=== PATIENT | male | born 1940 | race Caucasian/White ===

== ENCOUNTER 2022-06-08 11:44 | Inpatient (IN) | payer BC, MEDICAID ==
[~2022-06-08] VITALS: Ht 167.6 cm; Wt 85.3 kg
--- NOTE | 2022-06-08 11:50 | NUR ---
BIBRA 59 FROM SNF C/O SORETHROAT X 1 DAY. PLACED IN BED, AAOX3, BREATHING UNLABORED SATURATING AT 95%RA.
--- NOTE | 2022-06-08 12:25 | NUR ---
BLOOD DRAWN AND SWAB FOR COVID19 SENT TO LAB
[2022-06-08 12:33] LABS: BASOPHILS % (AUTO) 0.5 % (0.0-2.0); EOSINOPHILS % (AUTO) 1.9 % (0.0-6.0); HEMATOCRIT 45 % (39-51); HEMOGLOBIN 14.3 g/dL (13.5-17.5); LYMPHOCYTES # (AUTO) 1.6 K/uL (0.8-4.8); MEAN CORPUSCULAR HGB CONC 32 g/dl (31.0-36.0); MEAN CORPUSCULAR VOLUME 92 fL (80-96); MONOCYTES # (AUTO) 0.5 K/uL (0.1-1.30); MONOCYTES % (AUTO) 5.4 % (2.0-12.0); NEUTROPHILS # (AUTO) 6.2 K/uL (1.8-8.9); NEUTROPHILS % (AUTO) 73.2 % (43.0-81.0); PLATELET COUNT (AUTO) 287 K/uL (150-450); RED BLOOD CELL COUNT(AUTO) 4.89 MIL/uL (4.5-6.0); WHITE BLOOD COUNT (AUTO) 8.5 K/uL (4.3-11.0)
--- NOTE | 2022-06-08 12:41 | NUR ---
urine sample sent to lab
[2022-06-08 12:47] LABS: CALCIUM, SERUM 8.9 mg/dL (8.5-10.1); CARBON DIOXIDE 33 mmol/L (21-32); CHLORIDE 106 mmol/L (98-107); CREATININE 0.7 mg/dL (0.6-1.3); GLUCOSE 148 mg/dL (74-106); POTASSIUM 3.5 mmol/L (3.5-5.1); SODIUM SERUM 145 mmol/L (136-145); UREA NITROGEN, BLOOD 20 mg/dL (7-18)
[2022-06-08 12:53] LABS: ALANINE AMINOTRANSFERASE 34 U/L (12-78); ALBUMIN 2.9 g/dL (3.4-5.0); ALKALINE PHOSPHATASE 108 U/L (46-116); ASPARTATE AMINOTRANSFERASE 19 U/L (15-37); BILIRUBIN,DIRECT 0.2 mg/dL (0.0-0.2); BILIRUBIN,TOTAL 0.4 mg/dL (0.2-1.0); TOTAL PROTEIN, SERUM 7.4 g/dL (6.4-8.2)
[2022-06-08 13:16] LABS: BILIRUBIN,URINE NEGATIVE (NEGATIVE); COLOR,URINE YELLOW (YELLOW); LEUKOCYTE ESTERASE ,URINE NEGATIVE (NEGATIVE); NITRITE, URINE NEGATIVE (NEGATIVE); PH,URINE 6.5 (5.0-8.0); PROTEIN,URINE NEGATIVE (NEGATIVE); UGLUCOSE NEGATIVE (NEGATIVE)
[2022-06-08 13:28] LABS: BACTERIA,URINE Rare /HPF (None Seen); SQUAMOUS EPITHELIAL CELL,UR Rare /HPF (None Seen); WBC,URINE 0-2 /HPF (0-3)
[2022-06-08] MEDS ORDERED: ONDANSETRON HCL/PF 4 MG/2 ML VIAL IVP PRN (13:30)
[2022-06-08] MEDS ORDERED: ASPIRIN EC 325 MG TABLET.DR PO ONE ×2 (13:30→13:34)
[2022-06-08] MEDS ORDERED: ACETAMINOPHEN 325 MG TABLET PO PRN (13:30)
--- NOTE | 2022-06-08 14:17 | NUR ---
CALLED ADMITTING REGARDING PT INSURANCE AND WAS NOTIFIED THAT WE ARE AWAITING A CALL BACK FROM LAUNDRY HOUSEKEEPER.
--- NOTE | 2022-06-08 16:20 | NUR ---
room 311-1
--- NOTE | 2022-06-08 16:50 | NUR ---
REPORT GIVEN TO MAREN RAMOS ROOM 311-1 FOR RAMIRO
--- NOTE | 2022-06-08 17:05 | NUR ---
PATIENT TRANSFERED AND ADMITTED PER ACLS PROTOCOL
--- NOTE | 2022-06-08 17:45 | NUR ---
PATIENT RECEIVED VIA Maritza ABRAMS/ALEXANDER1-2 CONFUSED, PT SPEAKS VERY LITTLE SAUDI ARABIAN, UNABLE TO COMMUNICATE WELL DUE TO LANGUAGE BARRIER. PT IS BREATHING EVENLY AND UNLABORED ON ROOM AIR, NO SIGNS OF DISTRESS NOTED. VITALS: T-97.8; BP-154/94; HR-68; RESP-20; SPO2-95. PATIENT DENIES ANY PAIN OR DISCOMFORT AT THIS TIME. PATIENT ON TELE MONITORING. SKIN ASSESSMENT PERFORMED AND IDENTIFIED DARK BROWN BRUISES ON PARTS OF THE BODY, PHOTOS AND IDENTIFICATION TAKEN AND FILED ON FOLDER. PATIENT HAS IV ACCESS ON LAC# 20 PATENT AND INTACT. PATIENT WAA Addendum: 06/08/22 at 1999 by SAMMY CAMARA JR, RN PATIENT WAS ORIENTED TO ROOM AND HOW TO USE THE CALL LIGHT. BELONGINGS ACCOUNTED FOR, BED IN LOW LIGHT POSITION, SIDERAILS UP X2; WILL CONTINUE TO MONITOR AND ENDORSED TO ONCOMING CHROME PLATER HELPER NURSE. PATIENT ARRIVED AND RECEIVED AT APPROXIMATELY [id number].
[2022-06-08 18:26] VITALS: BP 145/74
--- NOTE | 2022-06-08 19:30 | NUR ---
TELERN FULLY AWAKE, TURKMEN SPEAKING , REFUSED BODY CHECKED. UNCOOPERATIVE OF THIS TIME. AWAITING FOR DPOA . PATIENT ON RA SATURATING 96 %. INCONTINENT, DRY OF THIS TIME. NO SOB. NEED MED RECON.
[2022-06-08 20:00] VITALS: BP 158/90
--- NOTE | 2022-06-08 20:30 | NUR ---
TELERN SPOKE TO DPOA ABLE TO PROVIDE PERTINENT ADM INFO . COPY OF DPOA ON CHART. MED RECON TO FOLLOW.
[2022-06-08] MEDS: ENOXAPARIN SODIUM 40 MG/0.4 ML DISP.SYRIN SQ SCH (20:31)
[2022-06-08] MEDS ORDERED: ROSU20TA2 PO (21:28)
[2022-06-08] MEDS ORDERED: MAGN24002 PO (21:28)
[2022-06-08] MEDS ORDERED: IPRA0.2S49 IH (21:28)
[2022-06-08] MEDS ORDERED: LANS30CA56 PO ×2 (21:28)
[2022-06-08] MEDS ORDERED: MAGN400T8 PO (21:28)
[2022-06-08] MEDS ORDERED: POLY119P PO (21:28)
[2022-06-08] MEDS ORDERED: BENZ-13 PO (21:28)
[2022-06-08] MEDS ORDERED: LEVE250T2 PO (21:28)
[2022-06-08] MEDS ORDERED: ALBU0.633 IH (21:28)
[2022-06-08] MEDS ORDERED: PRED1TAB PO (21:28)
--- NOTE | 2022-06-08 22:00 | NUR ---
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 ABLE TO GIVE LOVENOX SQ . NO OTHER NEEDS ATTENDED. KEPT COMFORTABLE.
[2022-06-08] MEDS ORDERED: AMIO200T5 PO (23:11)
[2022-06-08] MEDS ORDERED: IBUP-2413 PO (23:11)
[2022-06-08] MEDS ORDERED: GUAI100S9 PO (23:11)
[2022-06-08] MEDS ORDERED: CHLO473M3 MM (23:11)
[2022-06-08] MEDS ORDERED: HEPA1DIS10 IV/SQ (23:11)
[2022-06-08] MEDS ORDERED: DILT180C66 PO (23:11)
[2022-06-08] MEDS ORDERED: BISACODYL PR (23:11)
[2022-06-08] MEDS ORDERED: CLON0.1T PO (23:11)
--- NOTE | 2022-06-09 06:02 | NUR ---
TELERN AGREED TO AM CARE, HAD LARGE BM, LARGE URINE OUTPUT, KEPT DRY CLEAN AND COMFORTABLE. REPOSITIONED FOR COMFORT. ALL NEEDS ATTENDED.
--- NOTE | 2022-06-09 07:26 | NUR ---
TEST CONDUCTOR OPENING NOTES RECEIVED PT AWAKE IN BED IN NO ACUTE SIGNS OF DISTRESS. HOB ELEVATED. A/O X2-3, KAZAKH SPEAKING, SPEAKS LITTLE LITHUANIAN, NO C/O PAIN OR DISCOMFORTS AT THIS TIME. ON ROOM AIR, TOLERATING WELL, BREATHING EVEN AND UNLABORED. ON EXTERNAL WATER CONTROL SUPERVISOR WITH CURRENT READING OF SR, HR 68 BPM AT THIS TIME, NO C/O CARDIAC DISTRESS VOICED. IV ACCESS ON LAC #20G SL, INTACT AND PATENT. SAFETY PRECAUTIONS IN PLACE: BED IN LOWEST LOCKED POSITION, HOB ELEVATED, SIDE-RAILS UP X3 AND CALL LIGHT WITHIN REACH. ALL NEEDS MET AT THIS TIME.
[2022-06-09 07:27] LABS: BASOPHILS % (AUTO) 0.3 % (0.0-2.0); EOSINOPHILS % (AUTO) 1.7 % (0.0-6.0); HEMATOCRIT 43 % (39-51); HEMOGLOBIN 14.2 g/dL (13.5-17.5); LYMPHOCYTES # (AUTO) 1.9 K/uL (0.8-4.8); LYMPHOCYTES % (AUTO) 25.7 % (20.0-44.0); MEAN CORPUSCULAR HGB CONC 33 g/dl (31.0-36.0); MEAN CORPUSCULAR VOLUME 91 fL (80-96); MONOCYTES # (AUTO) 0.6 K/uL (0.1-1.30); MONOCYTES % (AUTO) 8.7 % (2.0-12.0); NEUTROPHILS # (AUTO) 4.7 K/uL (1.8-8.9); NEUTROPHILS % (AUTO) 63.6 % (43.0-81.0); PLATELET COUNT (AUTO) 274 K/uL (150-450); RED BLOOD CELL COUNT(AUTO) 4.78 MIL/uL (4.5-6.0); WHITE BLOOD COUNT (AUTO) 7.4 K/uL (4.3-11.0)
[2022-06-09 07:30] VITALS: BP 156/76
[2022-06-09 08:18] LABS: CALCIUM, SERUM 8.9 mg/dL (8.5-10.1); CREATININE 0.6 mg/dL (0.6-1.3); MAGNESIUM 2.2 mg/dL (1.8-2.4); PHOSPHORUS 3.9 mg/dL (2.5-4.9); POTASSIUM 3.6 mmol/L (3.5-5.1)
[2022-06-09] MEDS: PANTOPRAZOLE 40 MG TABLET.DR PO SCH (08:27)
[2022-06-09] MEDS: ASPIRIN 81 MG TAB.CHEW PO SCH (08:27)
[2022-06-09 08:30] LABS: ALBUMIN 2.6 g/dL (3.4-5.0); BILIRUBIN,TOTAL 0.6 mg/dL (0.2-1.0); TOTAL PROTEIN, SERUM 6.9 g/dL (6.4-8.2)
--- NOTE | 2022-06-09 08:31 | NUR ---
RN NOTES RACHEL HADDAD RECEIVED CALL FROM LAB THAT PT STILL WITH CRITICAL HIGH TROPONIN 109. DR HODGES MADE AWARE AND ACKNOWLEDGED.
[2022-06-09] MEDS: ATORVASTATIN 10 MG TABLET PO SCH (08:38)
[2022-06-09] MEDS: CARVEDILOL 3.125 MG TABLET PO SCH ×2 (08:38→20:35)
[2022-06-09] MEDS: LOSARTAN POTASSIUM 50 MG TABLET PO SCH ×2 (08:38→20:35)
[2022-06-09] MEDS ORDERED: IBUP-2715 PO (10:32)
[2022-06-09] MEDS ORDERED: BISA10SU11 RC (10:32)
[2022-06-09] MEDS ORDERED: POLY17PO29 PO (10:32)
[2022-06-09] MEDS ORDERED: MAGN400O6 PO (10:32)
[2022-06-09] MEDS ORDERED: HEPA50007 SQ (10:32)
[2022-06-09] MEDS ORDERED: ACET-868 PO (10:32)
[2022-06-09 11:30] VITALS: BP 146/73
[2022-06-09] MEDS: ENOXAPARIN SODIUM 40 MG/0.4 ML DISP.SYRIN SQ SCH (13:24)
[2022-06-09 16:00] VITALS: BP 127/77
--- NOTE | 2022-06-09 17:00 | NUR ---
RN NOTES LEFT MESSAGED TO JOB SANCHEZ TO VERIFY MEDS RECON, SHE SAID THAT SHE'S NOT LONGER THE HOSPITALIST AND CONTACT DR. COOK. I CALLED DR. COOK'S OFFICE TO INFORMED A MEDS RECON BUT OFFICE ALREADY CLOSED. WILL ENDORSED TO THE MARKET DEVELOPER NURSE TO INFORM DR. COOK WHEN HE COMES.
--- NOTE | 2022-06-09 18:49 | NUR ---
RN CLOSING NOTES PATIENT AWAKE IN BED, IV ACCESS ON LAC#20 PATENT AND INTACT, NASAL CANULA 2L AT THIS TIME, UKRAINIAN SPEAKING, SPEAKS VERY LITTLE GERMAN AND SLIGHTLY GARBLED, UNABLE TO COMMUNICATE WELL DUE TO LANGUAGE BARRIER. 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 PATIENT ON TELE MONITORING WITH CURRENT READING OF NSR, HR 75, NO C/O OF CARDIAC DISTRESS VOICED. REPOSITIONED FOR COMFORT,ALL NEEDS ATTENDED, WILL BE ENDORSED TO THEATRICAL DRESSER NURSE FOR RAMIRO.
--- NOTE | 2022-06-09 20:04 | NUR ---
INSTANT POWDER SUPERVISOR OPENING NOTE RECEIVED PATIENT IN BED, AWAKE BUT LOOKS TIRED. AFEBRILE AND NOT IN ANY FORM OF ACUTE DISTRESS. ON O2 INHALATION VIA NASAL CANNULA AT 2LPM. DAUGHTER AT BEDSIDE. WITH IV ACCESS ON LAC 20G-SL. ON TELE MONITORING WITH CURRENT READING OF SR 76. PER REPORT, PATIENT HAD AN EPISODE OF CHOKING THIS MORNING DURING MEAL AND MD ORDERED FOR STAT CHEST-XRAY. AT AROUND 1925, CALLED INSIDE PATIENT'S ROOM AND FOUND THAT PATIENT IS HAVING A SEIZURE. INCREASED O2 INHALATION FROM 2LPM TO 5LPM AND SEIZURE PROTOCOL INITIATED. SEIZURE LASTED FOR 30SECS AND SUCTION WAS DONE. VITALS TAKEN POST-ICTAL STAGE FOLLOWS: BP- 163/98, P- 87 (SR ON TELE MONITOR), O2 SAT ON 5LPM- 98%, R-20. NOTIFIED MD GARLAND MAKER DR. SERVIN AND PRIMARY PHYSICIAN DR. COOK.
--- NOTE | 2022-06-09 20:25 | NUR ---
SLIP COVER ESTIMATOR NOTE TRIED TO CALL DR. COOK'S OFFICE AND SPOKE WITH STAFF TO INFORM ABOUT THE PATIENT'S CURRENT SITUATION AND SAID THAT THEY WILL TRY TO REACH THE DOCTOR AND WILL GIVE US A CALL BACK.
[2022-06-09 20:30] VITALS: BP 154/96
[2022-06-10 00:11] VITALS: BP 129/70
[2022-06-10] MEDS ORDERED: VANCOMYCIN 1 GM in IV D5W 250 ML IV STA (01:34)
--- NOTE | 2022-06-10 01:44 | NUR ---
VAMPER NOTE RELAYED BLOOD CULTURE RESULT TO DR. SNYDER AND ORDERED FOR STAT VANCOMYCIN (PHARMACY TO DOSE). CALLED OUTSIDE PHARMACY AND SPOKE WITH GEOVANNY TO INFORM AND VERIFY NEW ORDER.
[2022-06-10] MEDS ORDERED: VANCOMYCIN 1 GM VIAL ONE (02:04)
--- NOTE | 2022-06-10 04:41 | NUR ---
VEHICLE DYNAMICS ENGINEER NOTE DURING ROUTINE ROUNDS,PATIENT WOKE UP FROM COUGHING. UPON AUSCULTATION, PATIENT WHEEZES AND NOTED WITH CONGESTION. INFORMED DR. SNYDER AND ORDERED FOR PRN BREATHING TX Q 6HRS. ORDER NOTED AND CARRIED OUT.
[2022-06-10] MEDS ORDERED: IPRATROPIUM NEB FS 0.5 MG/2.5 ML AMPUL.NEB NEB PRN (05:00)
--- NOTE | 2022-06-10 06:23 | NUR ---
EXTENSION SUPERVISOR CLOSING NOTE PATIENT IN BED, ASLEEP BUT EASY TO AROUSE AND RESPONSIVE. ABLE TO MAKE NEEDS KNOWN. AFEBRILE AND NOT IN ANY FORM OF ACUTE DISTRESS. ON O2 INHALATION VIA NASAL CANNULA AT 4LPM. WITH IV ACCESS ON LAC 20G-SL. ON TELE MONITORING WITH CURRENT READING OF SR 72 WITH 1ST DEGREE AVB. MEDICATED ORDERED. STARTED ON IV ATB, MONITORED FOR ANY ADVERSE REACTION. SEIZURE PRECAUTION INITIATED. SAFETY MEASURES IN PLACE. KEPT BED IN LOCKED AND IN LOW POSITION. SIDE RAILS UP X2. ADVISED TO USE THE CALL LIGHT WHEN IN NEED OF ASSISTANCE. ALL NURSING NEEDS ATTENDED. ENDORSED TO INCOMING SHIFT FOR CONTINUITY OF CARE.
--- NOTE | 2022-06-10 07:14 | NUR ---
SEMICONDUCTOR DEVELOPMENT TECHNICIAN OPENING NOTES RECEIVED PT IN BED AWAKE AND LYING AT MODERATE HIGH BACKREST POSITION. A/O X2-3, YORUBA SPEAKING, SPEAKS LITTLE BRUNEIAN, DENIES PAIN OR ANY DISCOMFORTS AT THIS TIME. ON SUPPLEMENTAL 02 VIA N/C @ 4LPM, TOLERATING WELL, BREATHING EVEN AND UNLABORED. IV ACCESS ON LAC #20G SL, INTACT AND PATENT. ON TELE-MONITOR WITH CURRENT READING OF SR, HR 65 BPM, NO C/O CARDIAC DISTRESS VOICED AT THIS TIME. SAFETY AND SEIZURE PRECAUTIONS IN PLACE: BED IN LOWEST LOCKED POSITION AND PADDED, HOB ELEVATED, SIDE-RAILS UP X3 AND CALL LIGHT WITHIN REACH. WILL CONTINUE TO MONITOR PT.
[2022-06-10 08:00] VITALS: BP 101/57
[2022-06-10] MEDS: ATORVASTATIN 10 MG TABLET PO SCH (08:43)
[2022-06-10] MEDS: PANTOPRAZOLE 40 MG TABLET.DR PO SCH (08:43)
[2022-06-10] MEDS: ASPIRIN 81 MG TAB.CHEW PO SCH (08:43)
[2022-06-10] MEDS: CARVEDILOL 3.125 MG TABLET PO SCH ×2 (08:47→20:22)
[2022-06-10] MEDS: LOSARTAN POTASSIUM 50 MG TABLET PO SCH ×2 (08:48→20:22)
--- NOTE | 2022-06-10 08:48 | NUR ---
JOURNAL BOX INSPECTOR OPENING NOTES RECEIVED PT AWAKE IN BED. A/O X2-3, BULGARIAN SPEAKING, SPEAKS LIMITED DJIBOUTIAN, DENIES PAIN OR ANY DISCOMFORTS AT THIS TIME. NO SEIZURE, ON SUPPLEMENTAL 02 VIA N/C @ 4LPM, TOLERATING WELL, BREATHING EVEN AND UNLABORED. IV ACCESS ON LAC #20G SL, INTACT AND PATENT. ON TELE-MONITOR WITH CURRENT READING OF SR, HR 65 BPM, NO C/O CARDIAC DISTRESS VOICED AT THIS TIME. SAFETY AND SEIZURE PRECAUTIONS IN PLACE: BED IN LOWEST LOCKED POSITION AND PADDED, HOB ELEVATED, SIDE-RAILS UP X3 AND CALL LIGHT WITHIN REACH. WILL CONTINUE TO MONITOR PT.
[2022-06-10] MEDS: LEVETIRACETAM (500MG) 1,000 MG in IV NS 0.9% 100 ML IV SCH ×2 (11:57→22:31)
[2022-06-10 12:00] VITALS: BP 101/57
[2022-06-10] MEDS: ENOXAPARIN SODIUM 40 MG/0.4 ML DISP.SYRIN SQ SCH (13:49)
[2022-06-10] MEDS: VANCOMYCIN 0.75 GM in IV D5W 250 ML IV SCH (13:52)
--- NOTE | 2022-06-10 16:10 | NUR ---
RN NOTES DR. COOK CONFIRMED THE MED RECON AND ALREADY FAXED IT TO PHARMACY. ALREADY INFORMED DR. COOK TO CALL THE PATIENT'S SON GILBERT IN [place]. GAVE HIM HIS PHONE NUMBER.
[2022-06-10 16:12] VITALS: BP 108/60
[2022-06-10] MEDS ORDERED: CLONIDINE HCL 0.1 MG TABLET PO PRN (17:00)
[2022-06-10] MEDS ORDERED: GUAIFENESIN 300 MG/15 ML UDC PO PRN (17:00)
[2022-06-10] MEDS ORDERED: MAGNESIUM HYDROXIDE 30 ML UDC PO PRN (17:00)
[2022-06-10] MEDS ORDERED: BISACODYL SUPP (10 MG) 10 MG/SUPP.RECT SUPP.RECT RC PRN (17:00)
[2022-06-10] MEDS ORDERED: IBUPROFEN 200 MG TABLET PO PRN (17:00)
[2022-06-10] MEDS ORDERED: BENZONATATE 100 MG CAPSULE PO PRN (17:00)
[2022-06-10] MEDS ORDERED: IPRATROPIUM NEB FS 0.5 MG/2.5 ML AMPUL.NEB IH PRN (17:00)
[2022-06-10] MEDS: AMIODARONE HCL 200 MG TABLET PO SCH (17:00)
[2022-06-10] MEDS: CHLORHEXIDINE GLUCONATE 15 ML UDC MM SCH (17:15)
[2022-06-10] MEDS: POLYETHYLENE GLYCOL 3350 17 GM POWD.PACK PO SCH (17:16)
[2022-06-10] MEDS: MAGNESIUM OXIDE 400 MG TABLET PO SCH (17:16)
--- NOTE | 2022-06-10 17:48 | NUR ---
CREW TEAM MEMBER - PT W POSSIBLE ASPIRATION AT DINNERTIME. REPOSITIONED, SUCTIONED, INCREASE O2. PT CALMED. SATS AT 96%/ COUGHING, CHEST W RALES, COARSE BREATH SOUNDS ON AUSCULTATION. CXR ORDERED
[2022-06-10] MEDS ORDERED: DILTIAZEM HCL CD 180 MG PO SCH (18:00)
[2022-06-10] MEDS: predniSONE 1 MG TABLET PO SCH (18:17)
--- NOTE | 2022-06-10 18:33 | NUR ---
RN NOTES CXR SHOWS LUNGS IS CLEAR WITH NO EVIDENCE OF ACUTE DISEASE. PT RESTING AT HIGH BACKREST POSITION AT THIS TIME. WILL ENDORSE TO INCOMING SHIFT NURSE.
--- NOTE | 2022-06-10 18:42 | NUR ---
RN CLOSING NOTES PATIENT AWAKE IN BED, IV ACCESS ON LAC#20 PATENT AND INTACT, NASAL CANULA 4L AT THIS TIME, FRISIAN SPEAKING, SPEAKS VERY LITTLE KUWAITI AND SLIGHTLY GARBLED, UNABLE TO COMMUNICATE WELL DUE TO LANGUAGE BARRIER. RIGHT SIDED WEAKNESS FROM PREVIOUS CVA, PATIENT ON TELE MONITORING WITH CURRENT READING OF NSR, HR 67, NO C/O OF CARDIAC DISTRESS VOICED. REPOSITIONED FOR COMFORT,ALL NEEDS ATTENDED, WILL BE ENDORSED TO FOREIGN TRADE TEACHER NURSE FOR RAMIRO.
--- NOTE | 2022-06-10 19:22 | NUR ---
VACCINE MANAGER OPENING NOTE RECEIVED PATIENT IN BED, ON HIGH MADDOX'S POSITION, AWAKE, ALERT AND ORIENTED X2-3. ABLE TO MAKE NEEDS KNOWN. AFEBRILE AND NOT IN ANY FORM OF ACUTE DISTRESS. ON O2 INHALATION VIA NASAL CANNULA AT 4LPM. ON TELE MONITORING WITH CURRENT READING OF TELE SR. WITH IV ACCESS ON LAC 20G-SL. SEIZURE PRECAUTION OBSERVED. SAFETY MEASURES IN PLACE. KEPT BED IN LOCKED AND IN LOW POSITION. SIDE RAILS UP X2. ADVISED TO USE THE CALL LIGHT WHEN IN NEED OF ASSISTANCE.
[2022-06-10 20:00] VITALS: BP 126/70
[2022-06-10] MEDS: DILTIAZEM HCL 30 MG TABLET PO SCH (23:43)
[2022-06-11] VITALS: BP 129/66
[2022-06-11] MEDS: VANCOMYCIN 0.75 GM in IV D5W 250 ML IV SCH ×2 (01:08→16:28)
[2022-06-11 05:08] VITALS: BP 117/61
[2022-06-11] MEDS: DILTIAZEM HCL 30 MG TABLET PO SCH ×3 (05:15→17:19)
--- NOTE | 2022-06-11 06:27 | NUR ---
MANAGER PHOTOGRAPHY CLOSING NOTE PATIENT IN BED, ON HIGH MADDOX'S POSITION, ASLEEP BUT EASY TO AROUSE AND RESPONSIVE. ABLE TO MAKE NEEDS KNOWN. AFEBRILE AND NOT IN ANY FORM OF ACUTE DISTRESS. ON O2 INHALATION VIA NASAL CANNULA AT 4LPM. ON TELE MONITORING WITH CURRENT READING OF TELE SR SR 61 WITH 1ST DEGREE AVB. WITH IV ACCESS ON LAC 20G-SL. MEDICATED ORDERED. CONTINUOUS ON IV ATB, MONITORED FOR ANY ADVERSE REACTION. SEIZURE PRECAUTION OBSERVED. SAFETY MEASURES IN PLACE. KEPT BED IN LOCKED AND IN LOW POSITION. SIDE RAILS UP X2. ADVISED TO USE THE CALL LIGHT WHEN IN NEED OF ASSISTANCE. ALL NURSING NEEDS ATTENDED. ENDORSED TO INCOMING SHIFT FOR CONTINUITY OF CARE.
[2022-06-11 06:52] LABS: CALCIUM, SERUM 8.8 mg/dL (8.5-10.1); CREATININE 1.3 mg/dL (0.6-1.3); POTASSIUM 3.4 mmol/L (3.5-5.1)
--- NOTE | 2022-06-11 07:20 | NUR ---
BOILER COVERER HELPER OPENING NOTE: RECEIVED PATIENT IN BED, ON HIGH MADDOX'S POSITION, AWAKE, ALERT AND ORIENTED X2-3. ABLE TO MAKE NEEDS KNOWN. ASPIRATION PRECAUTION OBSERVED. AFEBRILE AND NOT IN ANY FORM OF ACUTE DISTRESS. ON O2 INHALATION VIA NASAL CANNULA AT 4LPM. ON TELE MONITORING WITH CURRENT READING OF TELE SR. WITH IV ACCESS ON LAC 20G-SL. PATENT AND INTACT. NO INFILTRATION NOTED.. SEIZURE PRECAUTION OBSERVED. SAFETY MEASURES IN PLACE. KEPT BED IN LOCKED AND IN LOW POSITION. SIDE RAILS UP X2. ADVISED TO USE THE CALL LIGHT WHEN IN NEED OF ASSISTANCE.
[2022-06-11 08:19] VITALS: BP 93/62
[2022-06-11] MEDS: PANTOPRAZOLE 40 MG TABLET.DR PO SCH (09:12)
[2022-06-11] MEDS: LOSARTAN POTASSIUM 50 MG TABLET PO SCH ×2 (09:12→20:50)
[2022-06-11] MEDS: AMIODARONE HCL 200 MG TABLET PO SCH (09:14)
[2022-06-11] MEDS: ATORVASTATIN 10 MG TABLET PO SCH (09:14)
[2022-06-11] MEDS: MAGNESIUM OXIDE 400 MG TABLET PO SCH (09:14)
[2022-06-11] MEDS: predniSONE 1 MG TABLET PO SCH (09:14)
[2022-06-11] MEDS: CARVEDILOL 3.125 MG TABLET PO SCH ×2 (09:14→20:50)
[2022-06-11] MEDS: CHLORHEXIDINE GLUCONATE 15 ML UDC MM SCH ×2 (09:15→17:19)
[2022-06-11] MEDS: POLYETHYLENE GLYCOL 3350 17 GM POWD.PACK PO SCH (09:15)
[2022-06-11] MEDS: LEVETIRACETAM (500MG) 1,000 MG in IV NS 0.9% 100 ML IV SCH ×2 (09:15→20:55)
[2022-06-11] MEDS: ASPIRIN 81 MG TAB.CHEW PO SCH (09:15)
[2022-06-11] MEDS: ENOXAPARIN SODIUM 40 MG/0.4 ML DISP.SYRIN SQ SCH (09:17)
--- NOTE | 2022-06-11 09:40 | NUR ---
LIDIA RN NOTES: RECEIVED ORDER FROM DR. REIS AIR TRAFFIC INSTRUCTOR TO D/C TELE MONITORING AND CHANGE TO MED SURG. PATIENT REMAINS CALM AND STABLE. NEEDS ATTENDED PROMPTLY.
[2022-06-11 12:23] VITALS: BP 92/57
--- NOTE | 2022-06-11 14:30 | NUR ---
DR. COOK AT BEDSIDE
[2022-06-11 16:35] VITALS: BP 94/58
--- NOTE | 2022-06-11 18:52 | NUR ---
TEMPER MILL OPERATOR CLOSING NOTE PATIENT IN BED, ON HIGH MADDOX'S POSITION, AWAKE ALERT. ABLE TO MAKE NEEDS KNOWN. AFEBRILE AND NOT IN ANY FORM OF ACUTE DISTRESS. ON O2 INHALATION VIA NASAL CANNULA AT 3LPM. DINNER SERVED AND FED BY RETAIL DIRECTOR. ASPIRATION PRECAUTION OBSERVED. ON TELE MONITORING WITH CURRENT READING OF TELE SR SR 61 WITH 1ST DEGREE AVB. WITH IV ACCESS ON LAC 20G-SL. MEDICATED GIVEN ORDERED. CONTINUOUS ON IV ATB, MONITORED FOR ANY ADVERSE REACTION. SEIZURE PRECAUTION OBSERVED. SAFETY MEASURES IN PLACE. KEPT BED IN LOCKED AND IN LOW POSITION. SIDE RAILS UP X2. ADVISED TO USE THE CALL LIGHT WHEN IN NEED OF ASSISTANCE. ALL NURSING NEEDS ATTENDED. ENDORSED TO INCOMING SHIFT FOR CONTINUITY OF CARE.
--- NOTE | 2022-06-11 19:55 | NUR ---
TRANSPORTATION EQUIPMENT PAINTER OPENING NOTE RECEIVED PATIENT IN BED, ON HIGH MADDOX'S POSITION, AWAKE ALERT X2 WITH SLURRED SPEECH. ABLE TO MAKE NEEDS KNOWN. NOT IN ANY FORM OF ACUTE DISTRESS. ON O2 INHALATION VIA NASAL CANNULA AT 3LPM TOLERATING WELL. ASPIRATION PRECAUTION OBSERVED. SEIZURE PRECAUTION IN PLACED. WITH IV ACCESS ON LAC 20G-SL. SAFETY MEASURES IN PLACE; KEPT BED IN LOCKED AND IN LOW POSITION. SIDE RAILS UP X2. ADVISED TO USE THE CALL LIGHT WHEN IN NEED OF ASSISTANCE.
[2022-06-11 20:00] VITALS: BP 112/73
[2022-06-12] MEDS: DILTIAZEM HCL 30 MG TABLET PO SCH ×2 (00:49→06:08)
[2022-06-12] MEDS: VANCOMYCIN 0.75 GM in IV D5W 250 ML IV SCH (01:31)
--- NOTE | 2022-06-12 06:41 | NUR ---
MS RN CLOSING NOTE PATIENT IN BED, ON HIGH MADDOX'S POSITION, AWAKE ALERT X2 WITH SLURRED SPEECH. ABLE TO MAKE NEEDS KNOWN. NOT IN ANY FORM OF ACUTE DISTRESS. ON O2 INHALATION VIA NASAL CANNULA AT 3LPM TOLERATING WELL. ASPIRATION PRECAUTION OBSERVED. SEIZURE PRECAUTION IN PLACED. WITH IV ACCESS ON LAC 20G-SL. ALL DUE MEDICATIONS ARE GIVEN. MADE SURE PATIENT IS COMFORTABLE. ALL NEEDS ARE MET. SAFETY MEASURES IN PLACE; KEPT BED IN LOCKED AND IN LOW POSITION. SIDE RAILS UP X2. ADVISED TO USE THE CALL LIGHT WHEN IN NEED OF ASSISTANCE. WILL ENDORSE TO NEXT SHIFT NURSE FOR CONTINUITY OF CARE.
[2022-06-12 07:00] VITALS: BP 146/75
[2022-06-12 07:12] LABS: CALCIUM, SERUM 8.5 mg/dL (8.5-10.1); CARBON DIOXIDE 28 mmol/L (21-32); CHLORIDE 102 mmol/L (98-107); CREATININE 1.4 mg/dL (0.6-1.3); GLUCOSE 102 mg/dL (74-106); POTASSIUM 3.5 mmol/L (3.5-5.1); SODIUM SERUM 137 mmol/L (136-145); UREA NITROGEN, BLOOD 37 mg/dL (7-18)
[2022-06-12] MEDS: CHLORHEXIDINE GLUCONATE 15 ML UDC MM SCH (08:34)
[2022-06-12] MEDS: ENOXAPARIN SODIUM 40 MG/0.4 ML DISP.SYRIN SQ SCH (08:35)
[2022-06-12] MEDS: POLYETHYLENE GLYCOL 3350 17 GM POWD.PACK PO SCH (08:36)
[2022-06-12] MEDS: AMIODARONE HCL 200 MG TABLET PO SCH (08:36)
[2022-06-12] MEDS: ASPIRIN 81 MG TAB.CHEW PO SCH (08:37)
[2022-06-12] MEDS: LOSARTAN POTASSIUM 50 MG TABLET PO SCH (08:37)
[2022-06-12 08:38] VITALS: BP 146/75
[2022-06-12] MEDS: MAGNESIUM OXIDE 400 MG TABLET PO SCH (08:38)
[2022-06-12] MEDS: CARVEDILOL 3.125 MG TABLET PO SCH (08:38)
[2022-06-12] MEDS: PANTOPRAZOLE 40 MG TABLET.DR PO SCH (08:38)
[2022-06-12] MEDS: ATORVASTATIN 10 MG TABLET PO SCH (08:39)
[2022-06-12] MEDS: predniSONE 1 MG TABLET PO SCH (08:43)
--- NOTE | 2022-06-12 09:45 | NUR ---
SLOPE HOIST OPERATOR NOTES: TO BE DISCHARGE TO SNF.DISCHARGE AND MEDS INSTRUCTIONS WERE PROVIDED. GIVEN REPORT VIA PHONE CALL TO LASHANDA RAMOS FROM [facility]. PATIENT UNABLE TO SIGN. BELONGINGS LIST CHECKED. REMOVED IV LINE, AND NAME WRIST BAND. SKIN INTACT. PICKED UP BY AMBULANCE. IN STABLE CONDITION VIA ALIZA. AND CHARGE NURSE AWARE OF THE DISCHARGE
[2022-06-13] MEDS ORDERED: LEVETIRACETAM SOL (5 ML) 100 MG/ML UDC PO SCH (09:00)
== END 2022-06-12 09:50 | DRG 281 ==
LOC: ER 12:00 → TELE 16:49 → MED 06-11 09:32
PROVIDERS: ADMIT Nurse Practitioner Acute Care; ATTEND Internal Medicine Nephrology
DX: I21.4 Non-ST elevation (NSTEMI) myocardial infarction (principal); D68.59 Other primary thrombophilia; E44.0 Moderate protein-calorie malnutrition; N17.9 Acute kidney failure, unspecified; I69.351 Hemiplegia and hemiparesis following cerebral infarction affecting right dominant side; G93.49 Other encephalopathy; I48.91 Unspecified atrial fibrillation; Z20.822 Contact with and (suspected) exposure to COVID-19; I69.320 Aphasia following cerebral infarction; E66.01 Morbid (severe) obesity due to excess calories; K21.9 Gastro-esophageal reflux disease without esophagitis; E88.09 Other disorders of plasma-protein metabolism, not elsewhere classified; Z87.891 Personal history of nicotine dependence; Z98.2 Presence of cerebrospinal fluid drainage device; Z68.30 Body mass index [BMI] 30.0-30.9, adult; R56.9 Unspecified convulsions; Z79.01 Long term (current) use of anticoagulants; Z79.51 Long term (current) use of inhaled steroids; Z79.899 Other long term (current) drug therapy
CPT/HCPCS: 36415; 70450-TC; 71045-TC; 80048-TC; 80053-TC; 80061-TC; 80076-TC; 80202-TC; 81001; 83605-TC; 83735-TC; 84100-TC; 84484-TC; 85025-TC; 85730-TC; 87040-TC; 87081-TC; 87086-TC; 93307-TC; A4223; C9803; G0378; J1650; J1953; J3370; J7030; J7040; J7050; J7060; J7512